=== PATIENT | male | born 1995 | race Caucasian/White ===

== ENCOUNTER 2020-10-01 04:03 | Emergency (ER) | payer MEDICAID ==
[~2020-10-01] VITALS: Ht 167.6 cm; Wt 54.5 kg
[~2020-10-01 04:03] MED LIST: ALBU18HF2 INH; ALBU6.7H9 INH; BECL7.3A INH; BENZ-49 PO; GUAI120015 PO; METH4TAB3 PO; ONDA8TAB65 PO; PANT-47 PO; PRED50TA PO
[2020-10-01] MEDS ORDERED: albuterol 2.5 MG/3 ML nebule CONTNEB PRN (04:15)
[2020-10-01] MEDS ORDERED: predniSONE 20 mg tablet PO ONE (04:15)
--- NOTE | 2020-10-01 04:28 | NUR ---
RT to see pt
[2020-10-01] MEDS ORDERED: ALBU8HFA PO (04:49)
[2020-10-01] MEDS ORDERED: PRED20TA PO (04:49)
[2020-10-01] MEDS ORDERED: BUDE90AE IH (04:52)
--- NOTE | 2020-10-01 05:05 | NUR ---
Pt had nebulizer treatement and states increased ability to breathe. Pt no longer tripoding
[2020-10-01 05:33] VITALS: BP 128/85
== END 2020-10-01 05:39 | disposition home or self-care (01) ==
LOC: ER 04:04
DX: R06.03 Acute respiratory distress (principal); R06.02 Shortness of breath; J45.901 Unspecified asthma with (acute) exacerbation; F12.90 Cannabis use, unspecified, uncomplicated; Z72.89 Other problems related to lifestyle; Z79.899 Other long term (current) drug therapy
CPT/HCPCS: 71045; 93005; 94640; 94644; 99285; J7512; A7015

== ENCOUNTER 2020-10-06 20:44 | Emergency (ER) | payer MEDICAID ==
[~2020-10-06] VITALS: Ht 167.6 cm; Wt 59.1 kg
[~2020-10-06 20:44] MED LIST changes: +ALBU8HFA PO; +BUDE90AE IH; +PRED20TA PO
[2020-10-06] MEDS ORDERED: AMOX-422 PO (21:39)
[2020-10-06] MEDS ORDERED: TETanus/Pertussis (Acell)/Diphther VAC/PF (Tdap-Adult) 0.5ml syringe IMVAC ONE (21:55)
[2020-10-06 22:29] VITALS: BP 137/78
== END 2020-10-06 22:30 | disposition home or self-care (01) ==
LOC: ER 20:44
DX: S41.111A Laceration without foreign body of right upper arm, initial encounter (principal); J45.909 Unspecified asthma, uncomplicated; F12.90 Cannabis use, unspecified, uncomplicated; Z72.89 Other problems related to lifestyle; Z79.899 Other long term (current) drug therapy; W54.0XXA Bitten by dog, initial encounter; Y93.89 Activity, other specified; Y92.89 Other specified places as the place of occurrence of the external cause; Y99.8 Other external cause status
CPT/HCPCS: 90471; 90715; 99283

== ENCOUNTER 2020-10-22 19:07 | Emergency (ER) | payer MEDICAID ==
[~2020-10-22] VITALS: Ht 170.2 cm; Wt 55.9 kg
[~2020-10-22 19:07] MED LIST changes: -PRED20TA PO
[2020-10-22] MEDS ORDERED: ipratropium/albuterol 3ml nebule NEB PRN ×2 (19:20→19:30)
--- NOTE | 2020-10-22 19:23 | NUR ---
DR HELLER TO BEDSIDE TO ASSESS AT BEDSIDE . RT AT BEDSIDE
[2020-10-22] MEDS ORDERED: LORazepam 2 mg/ml vial IV ONE (19:25)
[2020-10-22] MEDS ORDERED: methylPREDNISolone sod succ 125mg/2ml vial IV ONE (19:25)
--- NOTE | 2020-10-22 19:29 | NUR ---
, ORQUIDEA AT BEDSIDE GIVING SVN.
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
[2020-10-22] MEDS ORDERED: ALBU8.5H8 INH (19:58)
[2020-10-22 20:18] VITALS: BP 122/63
== END 2020-10-22 20:21 | disposition home or self-care (01) ==
LOC: ER 19:07
DX: J45.901 Unspecified asthma with (acute) exacerbation (principal); F12.90 Cannabis use, unspecified, uncomplicated; Z72.89 Other problems related to lifestyle; Z79.899 Other long term (current) drug therapy
CPT/HCPCS: 94640; 96374; 96375; 99284; J2060; J2930; 94760

== ENCOUNTER 2020-11-30 00:41 | Emergency (ER) | payer MEDICAID, OTHER ==
[~2020-11-30] VITALS: Ht 170.2 cm; Wt 54.5 kg
[~2020-11-30 00:41] MED LIST changes: +ALBU8.5H8 INH; -ALBU8HFA PO
--- NOTE | 2020-11-30 01:19 | NUR ---
Mother called to report he is suicidal and that the cut was no accident and that she cannot find the knife. That he was in the bathroom most of the night and she was trying to talk him out of it. I told her to call me back that I had to go to the room immediately. Luz GARCIA and Dr King made aware. Had the patient strip of his clothes. Cannot find a knife. He did have 2 xanax bars in his sock.
[2020-11-30] MEDS ORDERED: TETanus/Pertussis (Acell)/Diphther VAC/PF (Tdap-Adult) 0.5ml syringe IMVAC ONE (01:20)
[2020-11-30] MEDS ORDERED: LIDOcaine 1% W/epiNEPHrine 1:200,000 10ml vial IJ ONE ×2 (01:20)
--- NOTE | 2020-11-30 01:35 | NUR ---
Pt mother called and stated pt is suicidal but will not be forthcoming or truthful. She states he has made suicidal threats and that this was indeed an attempt.
[2020-11-30] MEDS ORDERED: ALBU8HFA PO ×2 (02:16→21:42)
--- NOTE | 2020-11-30 02:25 | NUR ---
Pt disrobed and checked for weapons. Pt had socks on and appeared to tuck something into them. Checked Pt's socks and found two pills, yellow rectangles. Medications contained and stickered and sent to pharmacy.
--- NOTE | 2020-11-30 02:28 | NUR ---
Pt pills that were going to be taken to Pharmacy where snuck into by pt who proceded to take them when the nurses back was turned.
[2020-11-30 02:41] LABS: BASOPHILS # (AUTO) 0.1 X10'3 (0-0.2); BASOPHILS % (AUTO) 1.2 % (0-1); EOSINOPHILS # (AUTO) 0.4 X10'3 (0-0.9); EOSINOPHILS % (AUTO) 5.7 % (0-6); HEMATOCRIT 47.7 % (42.0-52.0); HEMOGLOBIN 16.8 g/dl (14.0-17.9); LYMPHOCYTES # (AUTO) 2.3 X10'3 (1.1-4.8); LYMPHOCYTES % (AUTO) 36.8 % (21-51); MEAN CORPUSCULAR HEMOGLOBIN 34.3 PG (27.0-31.0); MEAN CORPUSCULAR HGB CONC 35.3 g/dL (33.0-36.5); MEAN CORPUSCULAR VOLUME 97.1 FL (78-98); MONOCYTES # (AUTO) 0.6 X10'3 (0-0.9); MONOCYTES % (AUTO) 10.3 % (2-12); NEUTROPHILS # (AUTO) 2.8 X10'3 (1.8-7.7); PLATELET COUNT 280 X10'3 (140-440); RED BLOOD COUNT 4.92 X10'6 (4.70-6.10); RED CELL DISTRIBUTION WIDTH 12.7 % (11.5-14.5); WHITE BLOOD COUNT 6.1 X10'3 (4.5-11.0)
[2020-11-30 02:54] LABS: ALANINE AMINOTRANSFERASE 31 U/L (12-78); ALBUMIN 4.6 G/DL (3.4-5.0); ALBUMIN/GLOBULIN RATIO 1.4 (1.1-1.5); ALKALINE PHOSPHATASE 61 IU/L (46-116); ANION GAP 10 (8-16); ASPARTATE AMINO TRANSFERASE 23 U/L (10-37); BILIRUBIN,TOTAL 0.5 MG/DL (0.1-1.0); BLOOD UREA NITROGEN 10 MG/DL (7-18); BUN/CREATININE RATIO 14.7 (5.4-32.0); CALCIUM 9.4 MG/DL (8.5-10.1); CHLORIDE 105 MMOL/L (99-107); CREATININE 0.68 MG/DL (0.60-1.10); ETHANOL 0.137 GM/DL (0.0-0.010); GLUCOSE 90 MG/DL (70-104); POTASSIUM 3.4 MMOL/L (3.5-5.1); SODIUM 144 MMOL/L (135-145); TOTAL CARBON DIOXIDE 29.5 MMOL/L (24-32); TOTAL PROTEIN 7.9 G/DL (6.4-8.2); eGFR > 90 ML/MIN
[2020-11-30 02:55] LABS: URINE AMPHETAMINE SCREEN NEGATIVE (Neg); URINE BARBITUATE SCREEN NEGATIVE (Neg); URINE BENZODIAZEPINES SCREEN NEGATIVE (Neg); URINE CANNABINOID SCREEN POSITIVE (Neg); URINE COCAINE SCREEN NEGATIVE (Neg); URINE METHADONE SCREEN NEGATIVE (Neg); URINE OPIATE SCREEN NEGATIVE (Neg); URINE PHENCYCLIDINE SCREEN NEGATIVE (Neg)
[2020-11-30 03:02] LABS: ACETAMINOPHEN < 2.0 UG/ML (10-30)
--- NOTE | 2020-11-30 04:14 | NUR ---
Pt is now in ER overflow, resting quietly in bed
[2020-11-30 05:32] VITALS: BP 104/56
--- NOTE | 2020-11-30 07:00 | NUR ---
Pt remains sleeping in no apparent distress.
[2020-11-30] MEDS ORDERED: ipratropium/albuterol 3ml nebule NEB ONE (08:20)
--- NOTE | 2020-11-30 09:00 | NUR ---
Pt awoke for breakfast and is currently lying in bed without complaints.
--- NOTE | 2020-11-30 10:39 | NUR ---
[facility] She is going to discharge him home. She will have Dr Bernard get the papers ready.
[2020-11-30] MEDS ORDERED: Melatonin 3mg tablet PO SCH (21:00)
[2020-11-30] MEDS ORDERED: BECL7.3A INH (21:42)
== END 2020-11-30 10:50 | disposition home or self-care (01) ==
LOC: ER 00:42
DX: S61.512A Laceration without foreign body of left wrist, initial encounter (principal); Z20.822 Contact with and (suspected) exposure to COVID-19; R45.851 Suicidal ideations; J45.909 Unspecified asthma, uncomplicated; F12.90 Cannabis use, unspecified, uncomplicated; Z76.0 Encounter for issue of repeat prescription; Z72.89 Other problems related to lifestyle; Z79.899 Other long term (current) drug therapy; W26.0XXA Contact with knife, initial encounter; Y93.89 Activity, other specified; Y92.89 Other specified places as the place of occurrence of the external cause; Y99.8 Other external cause status
CPT/HCPCS: 12002; 36415; 80053; 80305; 80320; 80329; 85025; 87426; 94640; 99284

== ENCOUNTER 2020-11-30 15:57 | Emergency (ER) | payer MEDICAID, OTHER ==
[~2020-11-30] VITALS: Ht 170.2 cm; Wt 54.5 kg
[~2020-11-30 15:57] MED LIST changes: +ALBU8HFA PO
[2020-11-30 17:51] LABS: BASOPHILS # (AUTO) 0.1 X10'3 (0-0.2); EOSINOPHILS # (AUTO) 0.2 X10'3 (0-0.9); EOSINOPHILS % (AUTO) 3.5 % (0-6); HEMATOCRIT 46.2 % (42.0-52.0); HEMOGLOBIN 16.1 g/dl (14.0-17.9); LYMPHOCYTES # (AUTO) 1.1 X10'3 (1.1-4.8); LYMPHOCYTES % (AUTO) 18.8 % (21-51); MEAN CORPUSCULAR HGB CONC 34.8 g/dL (33.0-36.5); MEAN CORPUSCULAR VOLUME 97.9 FL (78-98); MEAN PLATELET VOLUME 7.8 FL (7.4-10.4); MONOCYTES # (AUTO) 0.8 X10'3 (0-0.9); MONOCYTES % (AUTO) 14.7 % (2-12); NEUTROPHILS # (AUTO) 3.5 X10'3 (1.8-7.7); PLATELET COUNT 283 X10'3 (140-440); RED BLOOD COUNT 4.72 X10'6 (4.70-6.10); RED CELL DISTRIBUTION WIDTH 12.7 % (11.5-14.5); WHITE BLOOD COUNT 5.6 X10'3 (4.5-11.0)
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
[2020-11-30 18:09] LABS: ALANINE AMINOTRANSFERASE 26 U/L (12-78); ALBUMIN 4.2 G/DL (3.4-5.0); ALBUMIN/GLOBULIN RATIO 1.4 (1.1-1.5); ALKALINE PHOSPHATASE 56 IU/L (46-116); ANION GAP 10 (8-16); ASPARTATE AMINO TRANSFERASE 26 U/L (10-37); BILIRUBIN,TOTAL 0.8 MG/DL (0.1-1.0); BLOOD UREA NITROGEN 10 MG/DL (7-18); BUN/CREATININE RATIO 12.7 (5.4-32.0); CALCIUM 9.9 MG/DL (8.5-10.1); CHLORIDE 102 MMOL/L (99-107); CREATININE 0.79 MG/DL (0.60-1.10); ETHANOL < 0.010 GM/DL (0.0-0.010); GLUCOSE 103 MG/DL (70-104); POTASSIUM 3.5 MMOL/L (3.5-5.1); SODIUM 139 MMOL/L (135-145); TOTAL CARBON DIOXIDE 27.3 MMOL/L (24-32); TOTAL PROTEIN 7.3 G/DL (6.4-8.2); eGFR > 90 ML/MIN
--- NOTE | 2020-11-30 18:10 | NUR ---
Mom reports this is the only time pt has ever sought help for his illness
[2020-11-30 18:40] LABS: URINE AMPHETAMINE SCREEN NEGATIVE (Neg); URINE BARBITUATE SCREEN NEGATIVE (Neg); URINE BENZODIAZEPINES SCREEN POSITIVE (Neg); URINE CANNABINOID SCREEN POSITIVE (Neg); URINE COCAINE SCREEN NEGATIVE (Neg); URINE METHADONE SCREEN NEGATIVE (Neg); URINE OPIATE SCREEN NEGATIVE (Neg); URINE PHENCYCLIDINE SCREEN NEGATIVE (Neg)
[2020-11-30] MEDS ORDERED: LORazepam 1 MG tablet PO ONE ×2 (19:40→22:15)
--- NOTE | 2020-11-30 20:06 | NUR ---
PT REPORTS HE HAS BEEN DRINKING A LOT RECENTLY, LAST DRINK YESTERDAY PRIOR TO HIS ADMISSION, PA NOTIFIED, ATIVAN PO GIVEN. NO SX OF ACUTE W/DRAWAL. PT COOPERATIVE, CALM.
--- NOTE | 2020-11-30 20:42 | NUR ---
Patient's packet was sent to [facility] .
[2020-11-30 20:54] VITALS: BP 136/94
[2020-11-30] MEDS ORDERED: BECL7.3A INH (21:42)
[2020-11-30] MEDS ORDERED: ALBU8HFA PO (21:42)
[2020-11-30] MEDS ORDERED: non-formulary drug (albuterol inhaler (Pro-Air Inhaler) 0 PUFFS) PO PRN (22:00)
[2020-11-30] MEDS ORDERED: LORazepam 1 MG tablet PO PRN (22:15)
[2020-11-30] MEDS ORDERED: Melatonin 3mg tablet PO SCH (22:15)
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
--- NOTE | 2020-11-30 22:50 | NUR ---
Patient sits quietly and reads. In direct view from the nurses station. Sa02 is 100 percent on room air, lung terrell are clear and equal bilaterally. Subjectively patient believes he might be SOB. Calming measures are used. This securities underwriter will re-evaluate afrer Carlo takes maximilianece.
--- NOTE | 2020-12-01 00:11 | NUR ---
Patient remains resistant to sleep. Patient continues to exhibit anxiety. RT is in the department. They will eval patient for his subjective complaints too. Patient does not exhibit any accessary or abdominal use, he has had clear lung terrell and good tical volume.
[2020-12-01] MEDS ORDERED: LORazepam 1 MG tablet PO ONE (01:05)
[2020-12-01] MEDS ORDERED: diphenhydrAMINE 25mg capsule PO ONE (01:05)
--- NOTE | 2020-12-01 01:50 | NUR ---
Patient continues to sat 100 percent on room air. Subjectively this patient feels he can't take a deep breath, "worse when laying down." RT will give a Beta 2 neb at 0200 hours. Patient agrees to ativan and benadryl for anxiety and inability to sleep if albuterol neb doesn't resolve resp complaint.
[2020-12-01] MEDS: albuterol 2.5 MG/3 ML nebule NEB SCH ×2 (02:05→08:22)
--- NOTE | 2020-12-01 04:09 | NUR ---
Patient is sleeping quietly on his right side. No s/s of any distress.
--- NOTE | 2020-12-01 07:00 | NUR ---
Pt remains asleep without signs of distress.
[2020-12-01] MEDS ORDERED: non-formulary drug (Beclomethasone Dipropionate (Qvar 40 MCG INHALER) 2 PUFFS) INH SCH (08:00)
[2020-12-01] MEDS ORDERED: budesonide 0.5mg/2ml UD nebule IH SCH (08:00)
--- NOTE | 2020-12-01 09:00 | NUR ---
Pt awoke for breakfast and currently is visiting with his mother who is at bedside. Pt has flat/depressed affect, but is calm and cooperative.
[2020-12-01] MEDS ORDERED: Melatonin 3mg tablet PO SCH (21:00)
== END 2020-12-01 10:18 | disposition home or self-care (01) ==
LOC: ER 15:58
DX: R45.851 Suicidal ideations (principal); J45.909 Unspecified asthma, uncomplicated; F12.90 Cannabis use, unspecified, uncomplicated; Z72.89 Other problems related to lifestyle; Z79.899 Other long term (current) drug therapy
CPT/HCPCS: 36415; 80053; 80305; 80320; 85025; 94640; 94760; 99285; J7626

== ENCOUNTER 2022-08-23 16:41 | Emergency (ER) | payer MEDICAID ==
[~2022-08-23] VITALS: Ht 167.6 cm; Wt 62.0 kg
[~2022-08-23 16:41] MED LIST changes: -ALBU18HF2 INH; -ALBU6.7H9 INH; -ALBU8.5H8 INH; -BENZ-49 PO; -BUDE90AE IH; -GUAI120015 PO; -METH4TAB3 PO; -ONDA8TAB65 PO; -PANT-47 PO; -PRED50TA PO
[2022-08-23 16:49] VITALS: BP 161/92
[2022-08-23] MEDS ORDERED: albuterol 2.5 MG/3 ML nebule NEB ONE (16:50)
--- NOTE | 2022-08-23 17:37 | NUR ---
pt doing much better after SVN - he is waiting in the lobby and advised to return to window if s\s worsen or return while he is waiting to be seen.
== END 2022-08-23 23:17 | disposition left against medical advice (07) ==
LOC: ER 16:43
DX: J45.909 Unspecified asthma, uncomplicated (principal); Z53.21 Procedure and treatment not carried out due to patient leaving prior to being seen by health care provider
CPT/HCPCS: 94640; 94760

== ENCOUNTER 2022-10-07 09:46 | Emergency (ER) | payer MEDICAID ==
[~2022-10-07] VITALS: Ht 170.2 cm; Wt 59.1 kg
[2022-10-07] MEDS ORDERED: PRED20TA PO (11:00)
[2022-10-07] MEDS ORDERED: ALBU6.7H14 INH (11:00)
[2022-10-07 11:12] VITALS: BP 124/78
== END 2022-10-07 11:14 | disposition home or self-care (01) ==
LOC: ER 09:47
DX: J45.909 Unspecified asthma, uncomplicated (principal); F12.90 Cannabis use, unspecified, uncomplicated; Z72.89 Other problems related to lifestyle; Z79.899 Other long term (current) drug therapy
CPT/HCPCS: 99283

== ENCOUNTER 2022-12-04 15:44 | Emergency (ER) | payer MEDICAID ==
[~2022-12-04] VITALS: Ht 170.2 cm; Wt 59.0 kg
[~2022-12-04 15:44] MED LIST changes: +ALBU6.7H14 INH
[2022-12-04 16:02] VITALS: BP 128/88
[2022-12-04] MEDS ORDERED: ALBU8HFA PO (18:30)
[2022-12-04] MEDS ORDERED: BECL7.3A7 IH (18:30)
[2022-12-04] MEDS ORDERED: PRED10TA23 PO (18:30)
== END 2022-12-04 18:40 | disposition home or self-care (01) ==
LOC: ER 15:45
DX: J45.909 Unspecified asthma, uncomplicated (principal); Z76.0 Encounter for issue of repeat prescription; F12.10 Cannabis abuse, uncomplicated; Z79.899 Other long term (current) drug therapy
CPT/HCPCS: 99281

== ENCOUNTER 2024-01-24 23:52 | Emergency (ER) | payer MEDICAID ==
[~2024-01-24] VITALS: Ht 170.2 cm; Wt 54.5 kg
[~2024-01-24 23:52] MED LIST changes: +BECL7.3A7 IH
[2024-01-25] VITALS: TEMP 98
[2024-01-25 06:27] VITALS: BP 141/91; PULSE 78; RESP 16; O2SAT 98
[2024-01-25] MEDS: TETanus/Pertussis (Acell)/Diphther VAC/PF (Tdap-Adult) 0.5ml syringe IMVAC ONE (06:39)
== END 2024-01-25 06:55 | disposition home or self-care (01) ==
LOC: ER 23:53
DX: S90.411A Abrasion, right great toe, initial encounter (principal); F12.90 Cannabis use, unspecified, uncomplicated; X58.XXXA Exposure to other specified factors, initial encounter; Y93.89 Activity, other specified; Y92.89 Other specified places as the place of occurrence of the external cause; Y99.8 Other external cause status
CPT/HCPCS: 73660; 90471; 90715; 99283; A6258